=== PATIENT | female | born 1930 | race Caucasian/White ===

== ENCOUNTER 2016-03-24 18:18 | Emergency (ER) | payer MEDICARE, OTHER ==
[~2016-03-24] VITALS: Ht 157.5 cm; Wt 75.0 kg
[~2016-03-24 18:18] MED LIST: BENZ0.5T PO; DOCU100C PO; DONE5TAB7 PO; HYDR-3516 PO; HYDR10TA23 PO; LISI-515 PO; MACR100C2 PO; METO25TA3 PO; QUET1TAB10 PO; QUET1TAB7 PO; ROBA100S PO; SERT-129 PO; TRAM50TA PO
[2016-03-24 18:19] VITALS: BP 172/72; PULSE 84; RESP 18; TEMP 98.7; O2SAT 96
[2016-03-24] MEDS ORDERED: SODIUM CHLOR 0.9% 1000 ML INJ 1,000 ML IV SCH (18:26)
[2016-03-24] MEDS ORDERED: SODIUM CHLORIDE 0.9% FLUSH 5 ML FLUSH IVF PRN (18:30)
[2016-03-24] MEDS ORDERED: MORPHINE SULFATE 4 MG/ML INJ IV PUSH ONE (18:30)
--- NOTE | 2016-03-24 18:54 | PD ---
HPI Chief Complaint: Abdominal Pain Time Seen by Provider: 18:48 Travel History International Travel<30 days: No Contact w/Intl Traveler<30days: No Traveled to known affect area: No History of Present Illness HPI 85-year-old female with a history of dementia and hypertension presents to the emergency department from her assisted living facility for evaluation of abdominal pain that began this afternoon. Per EMS report the patient began complaining of abdominal plain mostly on the right upper quadrant at around noon. The staff reported to EMS that the patient's pain has persisted. Per EMS report she has not had any vomiting, diarrhea, fever, urinary symptoms. Per EMS report from the facility the patient is at her mental status baseline. The patient is a poor historian. She is complaining of abdominal pain pointing to her right upper quadrant. No other complaints. PFSH Past Medical History Arthritis: No Anxiety: Yes Cancer: No Cardiovascular Problems: No Congestive Heart Failure: No Cerebrovascular Accident: No Dementia: Yes Diabetes: No Diminished Hearing: No Endocrine: No Gastrointestinal Disorders: No Genitourinary: No Headaches: No Hypertension: Yes Immune Disorder: No Implanted Vascular Access Dvce: No Musculoskeletal: Yes (LEFT WRIST FX) Neurologic: Yes (DEMENTIA) Psychiatric: No Respiratory: No Immunizations Current: Yes ([facility], APPROX 5 WEEKS AGO) Seizures: No Thyroid Disease: No Influenza Vaccination: No ?: Not Menopausal: Yes Para: 2 Past Surgical History Joint Replacement: No Other Surgery: No Social History Alcohol Use: No Tobacco Use: No Substance Use: No Allergies-Medications (Allergen,Severity, Reaction): Coded Allergies: No Known Allergies (Unverified , 03/23/16) Reported Meds & Prescriptions Reported Meds & Active Scripts Active Tramadol (Tramadol HCl) 50 Mg Tab 50 Mg PO Q6H PRN Macrobid (Nitrofurantoin Monoh/Nitrofur Macro) 100 Mg Cap 100 Mg PO BID Reported Robafen Dm 100-10 mg/5Ml (Dextromethorphan-Guaifenesin) 1 Syp Syp 10 Ml PO QID Hydrocodone-Acetaminophen 5-325 mg Tab 1 Tab PO Q4H PRN Docusate Sodium 100 Mg Cap 100 Mg PO BID Sertraline (Sertraline HCl) 100 Mg Tab 100 Mg PO DAILY Quetiapine (Quetiapine Fumarate) 300 Mg Tab 300 Mg PO HS Quetiapine (Quetiapine Fumarate) 25 Mg Tab 25 Mg PO DAILY Metoprolol Tartrate 25 Mg Tab 25 Mg PO BID Lisinopril 20 Mg Tab 20 Mg PO BID Hydralazine (Hydralazine HCl) 10 Mg Tab 10 Mg PO BID Take with a meal Donepezil 5 Mg Tab 5 Mg PO BID Benztropine (Benztropine Mesylate) 0.5 Mg Tab 0.5 Mg PO BID Review of Systems ROS Limitations: Poor Historian (dementia) Except as stated in HPI: all other systems reviewed are Neg Physical Exam Narrative GENERAL: Well-nourished and well-developed pleasant female patient in no acute distress. SKIN: Warm and dry. HEAD: Normocephalic and atraumatic. EYES: No injection, drainage, or hyphema noted. PERRLA. EOMI. ENT: No nasal drainage noted. Oropharynx is clear. NECK: Supple and the trachea is midline. CARDIOVASCULAR: Regular rate and rhythm. RESPIRATORY: Breath sounds are equal bilaterally with no accessory muscle use, wheezing, rhonchi, or crackles. GASTROINTESTINAL: Abdomen slightly distended with generalized tenderness to palpation worse in the right upper quadrant. Abdomen is soft. MUSCULOSKELETAL: No obvious deformities, swelling, cyanosis, or ecchymosis is present throughout the upper and lower extremities. Patient has full range of motion without any signs of neurovascular compromise. NEUROLOGICAL: Awake and alert. Normal speech and gait. Cranial nerves are grossly intact. Data Data Last Documented VS Vital Signs Date Time Temp Pulse Resp B/P Pulse Ox O2 Delivery O2 Flow Rate FiO2 03/24/16 19:13 18 03/24/16 19:10 90 171/78 97 Room Air 03/24/16 18:19 98.7 Orders Complete Blood Count With Diff (03/24/16 18:26) Comprehensive Metabolic Panel (03/24/16 18:26) Lipase (03/24/16 18:26) Prothrombin Time / Inr (Pt) (03/24/16 18:26) Act Partial Throm Time (Ptt) (03/24/16 18:26) Urinalysis - C+S If Indicated (03/24/16 18:26) Ct Abd/Pel W Iv Contrast(Rout) (03/24/16 18:26) Iv Access Insert/Monitor (03/24/16 18:26) Ecg Monitoring (03/24/16 18:26) Oximetry (03/24/16 18:26) Morphine Inj (Morphine Inj) (03/24/16 18:30) Sodium Chlor 0.9% 1000 Ml Inj (Ns 1000 M (03/24/16 18:26) Sodium Chloride 0.9% Flush (Ns Flush) (03/24/16 18:30) Electrocardiogram (03/24/16 18:26) Us Abdomen Gallbladder (03/24/16 ) Troponin I (03/24/16 18:26) Chest, Single Ap (03/24/16 18:32) Urine Culture (03/24/16 19:10) Cephalexin (Keflex) (03/24/16 23:00) Iohexol 350 Inj (Omnipaque 350 Inj) (03/24/16 23:00) Labs Laboratory Tests Test 03/24/16 03/24/16 03/24/16 18:26 18:50 19:10 White Blood Count 7.6 TH/MM3 Red Blood Count 3.47 MIL/MM3 Hemoglobin 10.3 GM/DL Hematocrit 31.2 % Mean Corpuscular Volume 89.9 FL Mean Corpuscular Hemoglobin 29.7 PG Mean Corpuscular Hemoglobin 33.0 % Concent Red Cell Distribution Width 13.9 % Platelet Count 225 TH/MM3 Mean Platelet Volume 9.5 FL Neutrophils (%) (Auto) 65.4 % Lymphocytes (%) (Auto) 21.3 % Monocytes (%) (Auto) 8.9 % Eosinophils (%) (Auto) 3.7 % Basophils (%) (Auto) 0.7 % Neutrophils # (Auto) 5.0 TH/MM3 Lymphocytes # (Auto) 1.6 TH/MM3 Monocytes # (Auto) 0.7 TH/MM3 Eosinophils # (Auto) 0.3 TH/MM3 Basophils # (Auto) 0.1 TH/MM3 CBC Comment DIFF FINAL Differential Comment Prothrombin Time 10.9 SEC Prothromb Time International 1.0 RATIO Ratio Activated Partial 27.6 SEC Thromboplast Time Sodium Level 139 MEQ/L Potassium Level 3.9 MEQ/L Chloride Level 104 MEQ/L Carbon Dioxide Level 27.7 MEQ/L Anion Gap 7 MEQ/L Blood Urea Nitrogen 20 MG/DL Creatinine 1.04 MG/DL Estimat Glomerular Filtration 50 ML/MIN Rate Random Glucose 108 MG/DL Calcium Level 8.6 MG/DL Total Bilirubin 0.2 MG/DL Aspartate Amino Transf 20 U/L (AST/SGOT) Alanine Aminotransferase 23 U/L (ALT/SGPT) Alkaline Phosphatase 110 U/L Troponin I LESS THAN 0.02 NG/ML Total Protein 8.0 GM/DL Albumin 3.7 GM/DL Lipase 321 U/L Urine Color YELLOW Urine Turbidity HAZY Urine pH 5.5 Urine Specific [place] 1.019 Urine Protein NEG mg/dL Urine Glucose (UA) NEG mg/dL Urine Ketones NEG mg/dL Urine Occult Blood NEG Urine Nitrite NEG Urine Bilirubin NEG Urine Urobilinogen LESS THAN 2.0 MG/DL Urine Leukocyte Esterase MOD Urine RBC 3 /hpf Urine WBC 7 /hpf Urine Squamous Epithelial <1 /hpf Cells Urine Bacteria MANY /hpf Urine Mucus FEW /lpf Microscopic Urinalysis Comment CULTURE INDICATED MDM Medical Decision Making Medical Screen Exam Complete: Yes Emergency Medical Condition: Yes Differential Diagnosis Cholecystitis versus colitis versus constipation versus UTI versus diverticulitis Narrative Course 85-year-old female is brought to the emergency department for [facility] for evaluation of right upper quadrant abdominal pain for 1 day. Patient is afebrile, vital signs are stable. The patient did recently fracture left wrist, was seen in our emergency department about a week ago for this injury. She has been given opioid pain medication for this pain, unsure of her last bowel movement. She does have generalized tenderness to palpation of her abdomen worse in the right upper quadrant. IV access is obtained, labs have been drawn and sent. Ultrasound and CT imaging has been ordered and is pending. Chest x-ray shows bibasilar atelectasis but otherwise is unremarkable. CBC shows mild anemia, otherwise unremarkable. CMP shows mild renal insufficiency with an elevated creatinine of 1.04, BUN 20, GFR 50. This is only a slight increase from baseline. Troponin is less than 0.02. Coags are unremarkable. Urinalysis shows moderate leukocyte esterase, 7 white blood cells, many bacteria and few mucus. Gallbladder ultrasound is negative for any acute abnormality. Patient reassessed and reports improvement of symptoms, states that she is no longer having abdominal pain. Vital signs are stable. Patient is given Keflex 500 mg orally for her urinary tract infection. If the patient's CT of her abdomen and pelvis is unremarkable she can be discharged back to her [facility] Dr. Villalobos will follow-up on CT results. Diagnosis Primary Impression: Urinary tract infection Qualified Code: N39.0 - Urinary tract infection without hematuria, site unspecified Additional Impressions: Abdominal pain Qualified Code: R10.11 - Right upper quadrant abdominal pain Cholecystitis Bree Wilson Mar 24, 2016 18:54
--- NOTE | 2016-03-24 18:56 | PD ---
Physical Exam Date Seen by Provider: Mar 24, 2016 Narrative I, Dr. Roy, have reviewed the advance practice practitioner's documentation and am in agreement, met with the patient face to face, made the diagnosis, and the medical decision making was done by me. *My assessment and Findings: The patient's abdomen is soft but she is tender in the right upper quadrant Data Data Last Documented VS Vital Signs Date Time Temp Pulse Resp B/P Pulse Ox O2 Delivery O2 Flow Rate FiO2 03/24/16 18:19 98.7 84 18 172/72 96 Orders Complete Blood Count With Diff (03/24/16 18:26) Comprehensive Metabolic Panel (03/24/16 18:26) Lipase (03/24/16 18:26) Prothrombin Time / Inr (Pt) (03/24/16 18:26) Act Partial Throm Time (Ptt) (03/24/16 18:26) Urinalysis - C+S If Indicated (03/24/16 18:26) Ct Abd/Pel W Iv Contrast(Rout) (03/24/16 18:26) Iv Access Insert/Monitor (03/24/16 18:26) Ecg Monitoring (03/24/16 18:26) Oximetry (03/24/16 18:26) Morphine Inj (Morphine Inj) (03/24/16 18:30) Sodium Chlor 0.9% 1000 Ml Inj (Ns 1000 M (03/24/16 18:26) Sodium Chloride 0.9% Flush (Ns Flush) (03/24/16 18:30) Electrocardiogram (03/24/16 18:26) Us Abdomen Gallbladder (03/24/16 ) Troponin I (03/24/16 18:26) Chest, Single Ap (03/24/16 18:32) MDM Supervised Visit with CLOVER: Yes Kelsey Roy MD Mar 24, 2016 18:56
--- NOTE | 2016-03-24 19:01 | RADRPT ---
EXAM DATE/TIME: 03/24/2016 18:44 [facility] COMPARISON: No previous studies available for comparison. INDICATIONS : Rib pain. MEDICAL HISTORY : Hypertension. Dementia. SURGICAL HISTORY : ORIF left wrist. ENCOUNTER: Initial ACUITY: 1 day PAIN SCORE: 0/10 LOCATION: Abdomen FINDINGS: There is mild bibasilar atelectasis. No pleural effusion or pneumothorax seen. Heart size upper limit s of normal. No perceptible fracture. CONCLUSION: Mild bibasilar atelectasis. Valeriano Jones MD on March 24, 2016 at 18:59 Board Certified Radiologist. This report was verified electronically.
[2016-03-24 19:08] LABS: BASOPHIL # 0.1 TH/MM3 (0-0.2); BASOPHIL % 0.7 % (0.0-2.0); EOSINOPHIL # 0.3 TH/MM3 (0-0.4); EOSINOPHIL % 3.7 % (0.0-4.0); HEMATOCRIT 31.2 % (35.0-46.0); HEMO FLAGS DIFF FINAL; LYMPH % 21.3 % (9.0-44.0); LYMPHOCYTE # 1.6 TH/MM3 (1.0-4.8); MEAN CELL VOLUME 89.9 FL (80.0-100.0); MEAN CORPUSCULAR HEMOGLOBIN 29.7 PG (27.0-34.0); MONO % 8.9 % (0.0-8.0); NEUT % 65.4 % (16.0-70.0); PLATELET COUNT 225 TH/MM3 (150-450); RED BLOOD COUNT 3.47 MIL/MM3 (4.00-5.30); RED CELL DISTRIBUTION WIDTH 13.9 % (11.6-17.2); WHITE BLOOD COUNT 7.6 TH/MM3 (4.0-11.0)
[2016-03-24 19:10] VITALS: BP 171/78; PULSE 90; RESP 18; O2SAT 97
[2016-03-24 19:15] LABS: APTT (PATIENT) 27.6 SEC (24.3-30.1); PROTHROMBIN TIME - PATIENT 10.9 SEC (9.8-11.6)
[2016-03-24 19:41] LABS: BACTERIA, URINE MANY /hpf; BLOOD, URINE NEG (NEG); COMMENT (UR) CULTURE INDICATED; CULTURE IF INDICATED CULTURE INDICATED; GLUCOSE,URINE NEG (NEG); KETONE, URINE NEG (NEG); MUCUS URINE FEW /lpf (OCC); NITRITE,URINE NEG (NEG); PH, URINE 5.5 (5.0-8.5); SQUAMOUS EPITHELIAL CELL URINE <1 /hpf (0-5); URINE COLOR YELLOW (YELLW/STRAW)
[2016-03-24 19:51] LABS: ALKALINE PHOSPHATASE 110 U/L (45-117); ALT (GPT) 23 U/L (10-53); ANION GAP 7 MEQ/L (5-15); AST (GOT) 20 U/L (15-37); BICARBONATE 27.7 MEQ/L (21.0-32.0); BLOOD UREA NITROGEN 20 MG/DL (7-18); CHLORIDE 104 MEQ/L (98-107); GLOMERULAR FILTRATION RATE 50 ML/MIN (>89); POTASSIUM 3.9 MEQ/L (3.5-5.1); SODIUM (NA) 139 MEQ/L (136-145); TOTAL BILIRUBIN ADULT 0.2 MG/DL (0.2-1.0)
--- NOTE | 2016-03-24 20:55 | RADRPT ---
EXAM DATE/TIME: 03/24/2016 19:39 [facility] COMPARISON: CT ABDOMEN & PELVIS W CONTRAST, February 04, 2016, 12:05. INDICATIONS : Right upper quadrant pain. MEDICAL HISTORY : Hypertension. Dementia. . Anxiety. Left wrist fracture. SURGICAL HISTORY : None. ENCOUNTER: Initial ACUITY: 1 day PAIN SCORE: 7/10 LOCATION: Right upper quadrant MEASUREMENTS: LIVER: 11.9 cm length COMMON DUCT: 3 mm RIGHT KIDNEY: 9.2 x 5.1 x 4.5 cm FINDINGS: LIVER: Normal echotexture without focal lesion or ductal dilatation. COMMON DUCT: No intraluminal mass or stone visualized. GALLBLADDER: Contains no stones, demonstrates no wall thickening or pericholecystic fluid. PANCREAS: The visualized portions are within normal limits. RIGHT KIDNEY: No evidence of hydronephrosis, stone, or mass. CONCLUSION: No acute abnormality demonstrated. Valeriano Jones MD on March 24, 2016 at 20:53 Board Certified Radiologist. This report was verified electronically.
[2016-03-24 23:00] VITALS: BP 177/78; PULSE 83; RESP 18; O2SAT 96
[2016-03-24] MEDS ORDERED: IOHEXOL 350 MG/ML 10 ML VIAL (for RAD DIAG) IV ONE (23:00)
[2016-03-24] MEDS ORDERED: CEPHALEXIN MONOHYDRATE 500 MG CAP PO ONE (23:00)
[2016-03-24] MEDS ORDERED: CEPH-460 PO (23:03)
--- NOTE | 2016-03-24 23:16 | RADRPT ---
EXAM DATE/TIME: 03/24/2016 22:42 [facility] COMPARISON: CT ABDOMEN & PELVIS W CONTRAST, February 04, 2016, 12:05. INDICATIONS : Diffuse abdominal pain. IV CONTRAST: 78 cc Omnipaque 350 (iohexol) IV ORAL CONTRAST: No oral contrast ingested. RADIATION DOSE: 10.05 CTDIvol (mGy) MEDICAL HISTORY : Dementia. Hypertension. SURGICAL HISTORY : None. ENCOUNTER: Initial ACUITY: 1 day PAIN SCALE: 4/10 LOCATION: Bilateral abdomen TECHNIQUE: Volumetric scanning of the abdomen and pelvis was performed. Using automated exposure control and ad justment of the mA and/or kV according to patient size, radiation dose was kept as low as reasonably achievable to obtain optimal diagnostic quality images. FINDINGS: LOWER LUNGS: There small areas consolidation right greater than left in both lung bases similar to previous CT sca n in January, likely atelectasis LIVER: Homogeneous density without lesion. There is no dilation of the biliary tree. No calcified gallston es. SPLEEN: Normal size without lesion. PANCREAS: Within normal limits. KIDNEYS: Normal in size and shape. There is no mass, stone or hydronephrosis. ADRENAL GLANDS: Within normal limits. VASCULAR: There is no aortic aneurysm. BOWEL/MESENTERY: The stomach, small bowel, and colon demonstrate no acute abnormality. There is no free intraperitone al air or fluid. Small duodenal diverticulum ABDOMINAL WALL: Within normal limits. RETROPERITONEUM: There is no lymphadenopathy. BLADDER: No wall thickening or mass with excellent distention. REPRODUCTIVE: Within normal limits. INGUINAL: There is no lymphadenopathy or hernia. MUSCULOSKELETAL: Within normal limits for patient age. CONCLUSION: The appendix is normal. The bladder is significantly distended without evidence of stone or obstructi on. No evidence of bowel wall thickening or mass. David Baker MD on March 24, 2016 at 23:12 Board Certified Radiologist. This report was verified electronically.
--- NOTE | 2016-03-25 01:09 | PD ---
Data Data Last Documented VS Vital Signs Date Time Temp Pulse Resp B/P Pulse Ox O2 Delivery O2 Flow Rate FiO2 03/24/16 23:00 83 18 177/78 96 Room Air 03/24/16 18:19 98.7 Orders Complete Blood Count With Diff (03/24/16 18:26) Comprehensive Metabolic Panel (03/24/16 18:26) Lipase (03/24/16 18:26) Prothrombin Time / Inr (Pt) (03/24/16 18:26) Act Partial Throm Time (Ptt) (03/24/16 18:26) Urinalysis - C+S If Indicated (03/24/16 18:26) Ct Abd/Pel W Iv Contrast(Rout) (03/24/16 18:26) Iv Access Insert/Monitor (03/24/16 18:26) Ecg Monitoring (03/24/16 18:26) Oximetry (03/24/16 18:26) Morphine Inj (Morphine Inj) (03/24/16 18:30) Sodium Chlor 0.9% 1000 Ml Inj (Ns 1000 M (03/24/16 18:26) Sodium Chloride 0.9% Flush (Ns Flush) (03/24/16 18:30) Electrocardiogram (03/24/16 18:26) Us Abdomen Gallbladder (03/24/16 ) Troponin I (03/24/16 18:26) Chest, Single Ap (03/24/16 18:32) Urine Culture (03/24/16 19:10) Cephalexin (Keflex) (03/24/16 23:00) Iohexol 350 Inj (Omnipaque 350 Inj) (03/24/16 23:00) Urinary Catheter Insert/Apply (03/24/16 23:44) Labs Laboratory Tests Test 03/24/16 03/24/16 03/24/16 18:26 18:50 19:10 White Blood Count 7.6 TH/MM3 Red Blood Count 3.47 MIL/MM3 Hemoglobin 10.3 GM/DL Hematocrit 31.2 % Mean Corpuscular Volume 89.9 FL Mean Corpuscular Hemoglobin 29.7 PG Mean Corpuscular Hemoglobin 33.0 % Concent Red Cell Distribution Width 13.9 % Platelet Count 225 TH/MM3 Mean Platelet Volume 9.5 FL Neutrophils (%) (Auto) 65.4 % Lymphocytes (%) (Auto) 21.3 % Monocytes (%) (Auto) 8.9 % Eosinophils (%) (Auto) 3.7 % Basophils (%) (Auto) 0.7 % Neutrophils # (Auto) 5.0 TH/MM3 Lymphocytes # (Auto) 1.6 TH/MM3 Monocytes # (Auto) 0.7 TH/MM3 Eosinophils # (Auto) 0.3 TH/MM3 Basophils # (Auto) 0.1 TH/MM3 CBC Comment DIFF FINAL Differential Comment Prothrombin Time 10.9 SEC Prothromb Time International 1.0 RATIO Ratio Activated Partial 27.6 SEC Thromboplast Time Sodium Level 139 MEQ/L Potassium Level 3.9 MEQ/L Chloride Level 104 MEQ/L Carbon Dioxide Level 27.7 MEQ/L Anion Gap 7 MEQ/L Blood Urea Nitrogen 20 MG/DL Creatinine 1.04 MG/DL Estimat Glomerular Filtration 50 ML/MIN Rate Random Glucose 108 MG/DL Calcium Level 8.6 MG/DL Total Bilirubin 0.2 MG/DL Aspartate Amino Transf 20 U/L (AST/SGOT) Alanine Aminotransferase 23 U/L (ALT/SGPT) Alkaline Phosphatase 110 U/L Troponin I LESS THAN 0.02 NG/ML Total Protein 8.0 GM/DL Albumin 3.7 GM/DL Lipase 321 U/L Urine Color YELLOW Urine Turbidity HAZY Urine pH 5.5 Urine Specific [place] 1.019 Urine Protein NEG mg/dL Urine Glucose (UA) NEG mg/dL Urine Ketones NEG mg/dL Urine Occult Blood NEG Urine Nitrite NEG Urine Bilirubin NEG Urine Urobilinogen LESS THAN 2.0 MG/DL Urine Leukocyte Esterase MOD Urine RBC 3 /hpf Urine WBC 7 /hpf Urine Squamous Epithelial <1 /hpf Cells Urine Bacteria MANY /hpf Urine Mucus FEW /lpf Microscopic Urinalysis Comment CULTURE INDICATED MDM Medical Record Reviewed: Yes Supervised Visit with CLOVER: Yes Narrative Course CBC & BMP Diagram 03/24/16 18:26 03/24/16 18:50 UA uti present lfts nl lipase nl Last 24 hours Impressions Chest X-Ray 03/24/161831 Signed Impressions: Service Date/Time: Thursday, March 24, 2016 18:44 - CONCLUSION: Mild bibasilar atelectasis. Valeriano Jones MD Abdomen/Pelvis CT 03/24/161825 Signed Impressions: Service Date/Time: Thursday, March 24, 2016 22:42 - CONCLUSION: The appendix is normal. The bladder is significantly distended without evidence of stone or obstruction. No evidence of bowel wall thickening or mass. David Baker MD Gall Bladder Ultrasound 03/24/16 0000 Signed Impressions: Service Date/Time: Saturday, March 24, 2016 19:39 - CONCLUSION: No acute abnormality demonstrated. Valeriano Jones MD The patient had urinary retention. Larson catheter in 1500 cc of clear urine was collected. The patient has remained at her baseline mental status throughout the ER stay, pleasantly confused. Tenderness about the abdomen improved significantly after urine was drained. There appears to be a urinary tract infection. The patient will go home on Keflex to [facility]. Diagnosis Primary Impression: Urinary tract infection Qualified Code: N39.0 - Urinary tract infection without hematuria, site unspecified Additional Impression: Acute urinary retention Referrals: Shawn Ferreira MD 2 days Primary Care Physician 1 day Additional Instruction: You have a choice when it comes to health care, and we are glad that you chose [facility]. Hopefully, we have met your expectations on today's visit. You are welcome to return to [facility] at any time, as we are committed to meeting the health care needs of our community. Med/Other Pt SpecificInfo: Prescription(s) given Scripts Cephalexin (Keflex)500 Mg [id number] Mg PO Q12H 7 Days Ref 0 Prov:Kelsey Roy MD 03/24/16 Disposition: 01 DISCHARGE HOME Condition: Stable Pb Villalobos MD Mar 25, 2016 01:09
[2016-03-25 05:59] VITALS: BP_SYST 173; BP_SYST 183; BP_DIAS 66; BP_DIAS 73; PULSE 88; PULSE 93; RESP 12; RESP 19; O2SAT 95
[2016-03-25 08:00] VITALS: BP 185/73; PULSE 80; RESP 15; O2SAT 95
--- NOTE | 2016-03-25 13:28 | EKG ---
Date Performed: 03/24/2016 Time Performed: 19:29:27 PTAGE: 85 years EKG: Sinus rhythm POSSIBLE LEFT ATRIAL ENLARGEMENT Since previous tracing, no significant change noted BORDERLINE ECG PREVIOUS TRACING : 06/23/2014 11.18 DOCTOR: Christelle Alvarado Interpretating Date/Time 03/25/2016 13:26:56
== END 2016-03-25 08:40 | disposition home or self-care (01) ==
LOC: NEPC 18:18
DX: N39.0 Urinary tract infection, site not specified (principal); B96.1 Klebsiella pneumoniae [K. pneumoniae] as the cause of diseases classified elsewhere; R10.11 Right upper quadrant pain; R07.81 Pleurodynia; R33.9 Retention of urine, unspecified; I10 Essential (primary) hypertension; K81.9 Cholecystitis, unspecified
CPT/HCPCS: 51702; 71010; 74177; 76705; 80053; 81001; 83690; 84484; 85025; 85610; 85730; 87077; 87086; 87186; 93005; 96374; 99285; J2270; J7030; Q9967

== ENCOUNTER 2016-03-25 14:42 | Emergency (ER) | payer MEDICARE, OTHER ==
[~2016-03-25] VITALS: Ht 162.6 cm; Wt 70.0 kg
[~2016-03-25 14:42] MED LIST changes: +CEPH-460 PO
[2016-03-25 14:48] VITALS: BP 153/68; PULSE 96; RESP 16; TEMP 99; O2SAT 96
--- NOTE | 2016-03-25 15:11 | PD ---
HPI . Pulling at her Larson Chief Complaint: Complaint Time Seen by Provider: 15:01 Travel History International Travel<30 days: No Contact w/Intl Traveler<30days: No Traveled to known affect area: No History of Present Illness HPI This patient is [place]-speaking and probably has some dementia. She was seen here yesterday and had an extensive evaluation for abdominal pain. She was found to have urinary retention and a UTI. She was discharged back to an assisted living facility with a Larson and with Keflex. The assisted living facility has sent her back to us as the patient is pulling on her Larson. PFSH Past Medical History Arthritis: No Anxiety: Yes Cancer: No Cardiovascular Problems: No Congestive Heart Failure: No Cerebrovascular Accident: No Dementia: Yes Diabetes: No Diminished Hearing: No Endocrine: No Gastrointestinal Disorders: No Genitourinary: No Headaches: No Hypertension: Yes Immune Disorder: No Implanted Vascular Access Dvce: No Musculoskeletal: Yes (LEFT WRIST FX) Neurologic: Yes (DEMENTIA) Psychiatric: No Respiratory: No Immunizations Current: Yes ([facility], APPROX 5 WEEKS AGO) Seizures: No Thyroid Disease: No ?: Not Menopausal: Yes Para: 2 Past Surgical History Joint Replacement: No Other Surgery: No Social History Alcohol Use: No Tobacco Use: No Substance Use: No Allergies-Medications (Allergen,Severity, Reaction): Coded Allergies: No Known Allergies (Unverified , 03/23/16) Reported Meds & Prescriptions Reported Meds & Active Scripts Active Keflex (Cephalexin) 500 Mg Cap 500 Mg PO Q12H 7 Days Tramadol (Tramadol HCl) 50 Mg Tab 50 Mg PO Q6H PRN Macrobid (Nitrofurantoin Monoh/Nitrofur Macro) 100 Mg Cap 100 Mg PO BID Reported Robafen Dm 100-10 mg/5Ml (Dextromethorphan-Guaifenesin) 1 Syp Syp 10 Ml PO QID Hydrocodone-Acetaminophen 5-325 mg Tab 1 Tab PO Q4H PRN Docusate Sodium 100 Mg Cap 100 Mg PO BID Sertraline (Sertraline HCl) 100 Mg Tab 100 Mg PO DAILY Quetiapine (Quetiapine Fumarate) 300 Mg Tab 300 Mg PO HS Quetiapine (Quetiapine Fumarate) 25 Mg Tab 25 Mg PO DAILY Metoprolol Tartrate 25 Mg Tab 25 Mg PO BID Lisinopril 20 Mg Tab 20 Mg PO BID Hydralazine (Hydralazine HCl) 10 Mg Tab 10 Mg PO BID Take with a meal Donepezil 5 Mg Tab 5 Mg PO BID Benztropine (Benztropine Mesylate) 0.5 Mg Tab 0.5 Mg PO BID Review of Systems ROS Limitations: Language Barrier Physical Exam Narrative GENERAL: Patient is lying on the stretcher looking comfortable and in no distress SKIN: Warm and dry. HEAD: Atraumatic. Normocephalic. EYES: Pupils equal and round. ENT: No nasal bleeding or discharge. Mucous membranes pink and moist. NECK: Trachea midline. CARDIOVASCULAR: Regular rate and rhythm. RESPIRATORY: No accessory muscle use. GASTROINTESTINAL: Abdomen soft, non-tender, nondistended. MUSCULOSKELETAL: No obvious deformities. No edema. NEUROLOGICAL: Awake and alert. No obvious cranial nerve deficits. Motor grossly within normal limits. Normal speech. PSYCHIATRIC: Unable to assess. Data Data Last Documented VS Vital Signs Date Time Temp Pulse Resp B/P Pulse Ox O2 Delivery O2 Flow Rate FiO2 03/25/16 17:33 68 17 167/73 97 Room Air 03/25/16 14:48 99.0 Orders Urinary Catheter - Remove (03/25/16 15:06) ^ Encourage Fluids (03/25/16 15:06) MDM Medical Decision Making Medical Screen Exam Complete: Yes Emergency Medical Condition: Yes Medical Record Reviewed: Yes Differential Diagnosis Differential diagnosis includes dementia, sepsis, UTI Narrative Course This patient was sent to us because she is pulling at her Larson. She lives in assisted living but not correction. We will remove her Larson, give her oral fluids and see if she will urinate on her own. 5 PM The patient has been given water but has not yet urinated. We checked a bladder scan and she's got less than 100 cc of urine in her bladder. She will be given more oral fluids. 5:45 PM The patient has spontaneously urinated. We will now discharge her back to the assisted living facility. Diagnosis Primary Impression: Urinary tract infection Disposition: 01 DISCHARGE HOME Condition: Stable Kelsey Roy MD Mar 25, 2016 15:11
[2016-03-25 17:33] VITALS: BP 167/73; PULSE 68; RESP 17; O2SAT 97
== END 2016-03-25 20:46 | disposition home or self-care (01) ==
LOC: NEPE 14:42
DX: N39.0 Urinary tract infection, site not specified (principal); I10 Essential (primary) hypertension; F03.90 Unspecified dementia, unspecified severity, without behavioral disturbance, psychotic disturbance, mood disturbance, and anxiety; F41.9 Anxiety disorder, unspecified
CPT/HCPCS: 99284

== ENCOUNTER 2016-04-01 09:32 | Emergency (ER) | payer MEDICARE, OTHER ==
[2016-04-01 09:40] VITALS: BP 150/66; PULSE 62; RESP 16; TEMP 98.2; O2SAT 98
[2016-04-01] MEDS ORDERED: SODIUM CHLORIDE 0.9% FLUSH 5 ML FLUSH IVF PRN (09:45)
[2016-04-01 09:55] VITALS: O2SAT 97
[2016-04-01] MEDS ORDERED: ACET300T2 PO (10:00)
[2016-04-01 10:11] LABS: AUTOMATED NEUTROPHIL # 6.7 TH/MM3 (1.8-7.7); BASOPHIL # 0.1 TH/MM3 (0-0.2); BASOPHIL % 0.7 % (0.0-2.0); EOSINOPHIL # 0.2 TH/MM3 (0-0.4); EOSINOPHIL % 2.5 % (0.0-4.0); HEMATOCRIT 29.4 % (35.0-46.0); HEMO FLAGS DIFF FINAL; LYMPH % 18.1 % (9.0-44.0); LYMPHOCYTE # 1.7 TH/MM3 (1.0-4.8); MEAN CELL VOLUME 89.4 FL (80.0-100.0); MEAN CORPUSCULAR HEMOGLOBIN 30.3 PG (27.0-34.0); MEAN CORPUSCULAR HGB CONC 33.9 % (32.0-36.0); MONO % 8.1 % (0.0-8.0); NEUT % 70.6 % (16.0-70.0); PLATELET COUNT 210 TH/MM3 (150-450); RED BLOOD COUNT 3.28 MIL/MM3 (4.00-5.30); WHITE BLOOD COUNT 9.5 TH/MM3 (4.0-11.0)
[2016-04-01 10:19] LABS: BLOOD, URINE SMALL (NEG); GLUCOSE,URINE NEG (NEG); KETONE, URINE NEG (NEG); MUCUS URINE FEW /lpf (OCC); NITRITE,URINE NEG (NEG); TRANSITIONAL EPI CELLS, URINE <1 /hpf; URINE COLOR YELLOW (YELLW/STRAW)
[2016-04-01 10:20] LABS: COMMENT (UR) CATH-CULT NOT IND; CULTURE IF INDICATED CATH CULTURE NOT IND
--- NOTE | 2016-04-01 10:22 | PD ---
HPI Chief Complaint: Abdominal Pain Time Seen by Provider: 09:39 Travel History International Travel<30 days: No Contact w/Intl Traveler<30days: No Traveled to known affect area: No History of Present Illness HPI Patient is a 85-year-old Tuvaluan-speaking female with history of dementia here with reported complaint of abdominal pain. Attempted to use telephone interpreter deaf, but patient only stating that she is here for "being cold". 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 Per EMS patient apparently complained staff at her [facility] this morning that she had abdominal pain. Patient denies any pain now. Per chart review patient has been here multiple times recently for urinary tract infection , urinary retention and had Larson catheter placed and removed. No documented fevers per EMS. Patient is apparently at mental status baseline per EMS. PFSH Past Medical History Arthritis: No Anxiety: Yes Cancer: No Cardiovascular Problems: No Congestive Heart Failure: No Cerebrovascular Accident: No Dementia: Yes Diabetes: No Diminished Hearing: No Endocrine: No Gastrointestinal Disorders: No Genitourinary: No Headaches: No Hypertension: Yes Immune Disorder: No Implanted Vascular Access Dvce: No Musculoskeletal: Yes (LEFT WRIST FX) Neurologic: Yes (DEMENTIA) Psychiatric: No Respiratory: No Immunizations Current: Yes ([facility], APPROX 5 WEEKS AGO) Seizures: No Thyroid Disease: No Menopausal: Yes Para: 2 Past Surgical History Surgical History: Unable to Obtain Joint Replacement: No Other Surgery: No Social History Alcohol Use: No Tobacco Use: No Substance Use: No Allergies-Medications (Allergen,Severity, Reaction): Coded Allergies: No Known Allergies (Unverified , 04/01/16) Reported Meds & Prescriptions Reported Meds & Active Scripts Active Keflex (Cephalexin) 500 Mg Cap 500 Mg PO Q12H 7 Days Tramadol (Tramadol HCl) 50 Mg Tab 50 Mg PO Q6H PRN Reported Acetaminophen-Codeine 300-30 mg Tab 1 Tab PO Q4H PRN Docusate Sodium 100 Mg Cap 100 Mg PO BID Sertraline (Sertraline HCl) 100 Mg Tab 100 Mg PO DAILY Quetiapine (Quetiapine Fumarate) 300 Mg Tab 300 Mg PO HS Quetiapine (Quetiapine Fumarate) 25 Mg Tab 25 Mg PO DAILY Metoprolol Tartrate 25 Mg Tab 25 Mg PO BID Lisinopril 20 Mg Tab 20 Mg PO BID Hydralazine (Hydralazine HCl) 10 Mg Tab 10 Mg PO BID Take with a meal Donepezil 5 Mg Tab 5 Mg PO BID Benztropine (Benztropine Mesylate) 0.5 Mg Tab 0.5 Mg PO BID Review of Systems ROS Limitations: Altered Mental Status, Language Barrier, Poor Historian Physical Exam Exam Limitations: Altered Mental Status, Poor Historian Narrative GENERAL: Elderly female lying in bed with eyes closed in no acute distress SKIN: Warm and dry. HEAD: Normocephalic. EYES: Pupils equal and round. No scleral icterus. No injection or drainage. ENT: No nasal bleeding or discharge. Mucous membranes pink and moist. NECK: Supple CARDIOVASCULAR: Regular rate and rhythm. Holosystolic murmur RESPIRATORY: No accessory muscle use. GASTROINTESTINAL: Abdomen soft, non-tender, nondistended. Absolutely no reproducible tenderness to palpation, no palpable bladder fullness. No CVA tenderness. MUSCULOSKELETAL: No edema. NEUROLOGICAL: Lying in bed with eyes closed. Moves all extremities spontaneously. Alert to self, but not place or time. Mumbles about being cold , but denies any other complaints PSYCHIATRIC: Deferred given mental status Data Data Last Documented VS Vital Signs Date Time Temp Pulse Resp B/P Pulse Ox O2 Delivery O2 Flow Rate FiO2 04/01/16 09:55 97 04/01/16 09:40 98.2 62 16 150/66 Orders Complete Blood Count With Diff (04/01/16 09:39) Comprehensive Metabolic Panel (04/01/16 09:39) Lipase (04/01/16 09:39) Urinalysis - C+S If Indicated (04/01/16 09:39) Iv Access Insert/Monitor (04/01/16 09:39) Ecg Monitoring (04/01/16 09:39) Oximetry (04/01/16 09:39) Sodium Chloride 0.9% Flush (Ns Flush) (04/01/16 09:45) Cath For Specimen (04/01/16 09:39) Labs Laboratory Tests Test 04/01/16 04/01/16 09:50 10:01 Urine Color YELLOW Urine Turbidity CLEAR Urine pH 6.0 Urine Specific [place] 1.014 Urine Protein NEG mg/dL Urine Glucose (UA) NEG mg/dL Urine Ketones NEG mg/dL Urine Occult Blood SMALL Urine Nitrite NEG Urine Bilirubin NEG Urine Urobilinogen LESS THAN 2.0 MG/DL Urine Leukocyte Esterase NEG Urine RBC 4 /hpf Urine WBC LESS THAN 1 /hpf Urine Transitional Epithelial <1 /hpf Cells Urine Mucus FEW /lpf Microscopic Urinalysis Comment CATH-CULT NOT IND White Blood Count 9.5 TH/MM3 Red Blood Count 3.28 MIL/MM3 Hemoglobin 10.0 GM/DL Hematocrit 29.4 % Mean Corpuscular Volume 89.4 FL Mean Corpuscular Hemoglobin 30.3 PG Mean Corpuscular Hemoglobin 33.9 % Concent Red Cell Distribution Width 14.0 % Platelet Count 210 TH/MM3 Mean Platelet Volume 9.4 FL Neutrophils (%) (Auto) 70.6 % Lymphocytes (%) (Auto) 18.1 % Monocytes (%) (Auto) 8.1 % Eosinophils (%) (Auto) 2.5 % Basophils (%) (Auto) 0.7 % Neutrophils # (Auto) 6.7 TH/MM3 Lymphocytes # (Auto) 1.7 TH/MM3 Monocytes # (Auto) 0.8 TH/MM3 Eosinophils # (Auto) 0.2 TH/MM3 Basophils # (Auto) 0.1 TH/MM3 CBC Comment DIFF FINAL Differential Comment Sodium Level 139 MEQ/L Potassium Level 4.4 MEQ/L Chloride Level 106 MEQ/L Carbon Dioxide Level 25.3 MEQ/L Anion Gap 8 MEQ/L Blood Urea Nitrogen 15 MG/DL Creatinine 0.77 MG/DL Estimat Glomerular Filtration 71 ML/MIN Rate Random Glucose 101 MG/DL Calcium Level 8.7 MG/DL Total Bilirubin 0.4 MG/DL Aspartate Amino Transf 25 U/L (AST/SGOT) Alanine Aminotransferase 18 U/L (ALT/SGPT) Alkaline Phosphatase 123 U/L Total Protein 7.6 GM/DL Albumin 3.4 GM/DL Lipase 165 U/L [facility] Medical Decision Making Medical Screen Exam Complete: Yes Emergency Medical Condition: Yes Medical Record Reviewed: Yes Differential Diagnosis 85-year-old female with history of dementia here with reported complaints of abdominal pain, denying pain currently. History is no doubt limited due to her dementia and confounded by Tuvaluan-speaking. She does not have any reproducible tenderness palpation on abdominal examination and denies pain at this time however given barriers with history, will obtain screening labs to evaluate for persistent UTI, catheter for urinary retention, pancreatitis, hepatobiliary pathology. Given her benign exam unlikely to be peritoneal pathology, bowel obstruction. Narrative Course Patient placed on monitor, IV established and blood obtained. CBC, CMP, lipase , urinalysis obtained and notable for scant blood in the urine likely from catheterized specimen. Patient's abdomen was reexamined with again without any reproducible pain. She has been imaged just for the last 1.[address] scan and ultrasound and I do not think this warrants repeating. Diagnosis Primary Impression: Abdominal pain, unspecified site Referrals: Primary Care Physician as needed Additional Instructions: Return to the ER for the warning signs discussed. Med/Other Pt SpecificInfo: No Change to Meds Disposition: 01 DISCHARGE HOME Condition: Stable Deb Dumont MD Apr 01, 2016 10:22
[2016-04-01 10:31] LABS: ALKALINE PHOSPHATASE 123 U/L (45-117); ALT (GPT) 18 U/L (10-53); ANION GAP 8 MEQ/L (5-15); AST (GOT) 25 U/L (15-37); BICARBONATE 25.3 MEQ/L (21.0-32.0); BLOOD UREA NITROGEN 15 MG/DL (7-18); CHLORIDE 106 MEQ/L (98-107); GLOMERULAR FILTRATION RATE 71 ML/MIN (>89); POTASSIUM 4.4 MEQ/L (3.5-5.1); SODIUM (NA) 139 MEQ/L (136-145); TOTAL BILIRUBIN ADULT 0.4 MG/DL (0.2-1.0)
[2016-04-01 12:28] VITALS: BP 160/70; PULSE 56; RESP 20; O2SAT 100
== END 2016-04-01 18:19 | disposition home or self-care (01) ==
LOC: NEPC 09:32
DX: R10.9 Unspecified abdominal pain (principal); F03.90 Unspecified dementia, unspecified severity, without behavioral disturbance, psychotic disturbance, mood disturbance, and anxiety; I10 Essential (primary) hypertension; R41.82 Altered mental status, unspecified
CPT/HCPCS: 80053; 81001; 83690; 85025; 99285; P9612

== ENCOUNTER 2016-04-25 15:03 | Emergency (ER) | payer MEDICARE, OTHER ==
[~2016-04-25] VITALS: Ht 152.4 cm; Wt 57.0 kg
[~2016-04-25 15:03] MED LIST changes: +ACET300T2 PO; -HYDR-3516 PO; -MACR100C2 PO; -ROBA100S PO
[2016-04-25 15:10] VITALS: BP 143/78; PULSE 65; RESP 16; TEMP 98.1; O2SAT 97
--- NOTE | 2016-04-25 15:31 | PD ---
HPI Chief Complaint: Psychiatric Symptoms Time Seen by Provider: 15:31 Travel History International Travel<30 days: No Contact w/Intl Traveler<30days: No Traveled to known affect area: No History of Present Illness HPI 85-year-old female presents to the emergency department as Simental act. According to law enforcement report the patient became aggressive with staff at [facility] as they were trying to clean her up; it states that she was swinging and scratching staff and was still acting violent when law enforcement arrived. The staff felt she needed to be evaluated before she actually hurt someone at the facility. History of present illness is limited secondary to patient dementia. The patient is speaking Mohawk and Gambian, and is easily understood when she speaks Gambian. Patient is alert, but disoriented; is able to state her name and that she is a hospital; does not know date, year, or President. Patient states "no" when I ask her if she wants to hurt anybody or herself. The patient stated "no" when I asked her if she had any chest pain, shortness of breath, stomach pain. She also stated "no "when I asked her if she had any medical complaints. 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 No other modifying factors or associated signs and symptoms. PFSH Past Medical History Arthritis: No Anxiety: Yes Cancer: No Cardiovascular Problems: No Congestive Heart Failure: No Cerebrovascular Accident: No Dementia: Yes Diabetes: No Diminished Hearing: No Endocrine: No Gastrointestinal Disorders: No Genitourinary: No Headaches: No Hypertension: Yes Immune Disorder: No Implanted Vascular Access Dvce: No Musculoskeletal: Yes (LEFT WRIST FX) Neurologic: Yes (DEMENTIA) Psychiatric: No Respiratory: No Immunizations Current: Yes ([facility], APPROX 5 WEEKS AGO) Seizures: No Thyroid Disease: No ?: Not Menopausal: Yes Para: 2 Past Surgical History Joint Replacement: No Other Surgery: No Social History Alcohol Use: No Tobacco Use: No Substance Use: No Allergies-Medications (Allergen,Severity, Reaction): Coded Allergies: No Known Allergies (Unverified , 04/25/16) Reported Meds & Prescriptions Reported Meds & Active Scripts Active Tramadol (Tramadol HCl) 50 Mg Tab 50 Mg PO Q6H PRN Reported Haloperidol 0.5 Mg Tab 0.5 Mg PO BID Benztropine (Benztropine Mesylate) 1 Mg Tab 1 Mg PO BID Acetaminophen-Codeine 300-30 mg Tab 1 Tab PO Q4H PRN Docusate Sodium 100 Mg Cap 100 Mg PO BID Sertraline (Sertraline HCl) 100 Mg Tab 100 Mg PO DAILY Quetiapine (Quetiapine Fumarate) 300 Mg Tab 300 Mg PO HS Metoprolol Tartrate 25 Mg Tab 25 Mg PO BID Lisinopril 20 Mg Tab 20 Mg PO BID Hydralazine (Hydralazine HCl) 10 Mg Tab 10 Mg PO BID Take with a meal Donepezil 5 Mg Tab 5 Mg PO BID Review of Systems Except as stated in HPI: all other systems reviewed are Neg Physical Exam Narrative GENERAL: Well-nourished, well-developed elderly, female patient, in no acute distress SKIN: Warm and dry. HEAD: Atraumatic. Normocephalic. EYES: Pupils equal and round. ENT: Mucosa pink and moist. NECK: Supple. Trachea midline. CARDIOVASCULAR: Regular rate and rhythm. No murmur appreciated. RESPIRATORY: No accessory muscle use. Clear to auscultation. Breath sounds equal bilaterally. GASTROINTESTINAL: Abdomen soft, non-tender, nondistended. Hepatic and splenic margins not palpable. Bowel sounds are active 4 quadrants. MUSCULOSKELETAL: No obvious deformities. No clubbing. No cyanosis. No edema. NEUROLOGICAL: History of dementia. Awake and alert. Oriented 2; place and name. No obvious cranial nerve deficits. Motor grossly within normal limits. Normal speech. Moves all extremities. 5/5 strength to all extremities. PSYCHIATRIC: No delusional thought processes. No hallucinations. Data Data Last Documented VS Vital Signs Date Time Temp Pulse Resp B/P Pulse Ox O2 Delivery O2 Flow Rate FiO2 04/25/16 16:28 63 16 139/63 98 Room Air 04/25/16 15:10 98.1 Orders Complete Blood Count With Diff (04/25/16 15:32) Comprehensive Metabolic Panel (04/25/16 15:32) Urinalysis - C+S If Indicated (04/25/16 15:32) Drug Screen, Random Urine (04/25/16 15:32) Alcohol (Ethanol) (04/25/16 15:32) Salicylates (Aspirin) (04/25/16 15:32) Tylenol (Acetaminophen) (2/1/17 15:32) Psych Screen (04/25/16 15:32) Labs Laboratory Tests Test 04/25/16 16:04 White Blood Count 6.8 TH/MM3 Red Blood Count 3.69 MIL/MM3 Hemoglobin 10.7 GM/DL Hematocrit 32.9 % Mean Corpuscular Volume 89.4 FL Mean Corpuscular Hemoglobin 29.1 PG Mean Corpuscular Hemoglobin 32.5 % Concent Red Cell Distribution Width 13.9 % Platelet Count 210 TH/MM3 Mean Platelet Volume 9.7 FL Neutrophils (%) (Auto) 62.5 % Lymphocytes (%) (Auto) 25.2 % Monocytes (%) (Auto) 7.6 % Eosinophils (%) (Auto) 4.0 % Basophils (%) (Auto) 0.7 % Neutrophils # (Auto) 4.3 TH/MM3 Lymphocytes # (Auto) 1.7 TH/MM3 Monocytes # (Auto) 0.5 TH/MM3 Eosinophils # (Auto) 0.3 TH/MM3 Basophils # (Auto) 0.0 TH/MM3 CBC Comment DIFF FINAL Differential Comment Sodium Level 141 MEQ/L Potassium Level 4.2 MEQ/L Chloride Level 107 MEQ/L Carbon Dioxide Level 26.5 MEQ/L Anion Gap 8 MEQ/L Blood Urea Nitrogen 20 MG/DL Creatinine 1.08 MG/DL Estimat Glomerular Filtration 48 ML/MIN Rate Random Glucose 91 MG/DL Calcium Level 8.6 MG/DL Total Bilirubin 0.3 MG/DL Aspartate Amino Transf 22 U/L (AST/SGOT) Alanine Aminotransferase 22 U/L (ALT/SGPT) Alkaline Phosphatase 121 U/L Total Protein 7.8 GM/DL Albumin 3.7 GM/DL Salicylates Level LESS THAN 1.7 MG/DL Acetaminophen Level LESS THAN 2.0 MCG/ML Ethyl Alcohol Level LESS THAN 3 MG/DL MDM Medical Decision Making Medical Screen Exam Complete: Yes Emergency Medical Condition: Yes Medical Record Reviewed: Yes Differential Diagnosis Dementia, Alzheimer's disease, medical clearance for psych evaluation Narrative Course Patient presents under a Simental act. Physical examination and vital signs are essentially unremarkable. Patient has no medical complaints to report. Psych screen has been ordered. If the laboratory results are unremarkable, the patient will be medically cleared for psychiatric evaluation and disposition. Diagnosis Primary Impression: Medical clearance for psychiatric admission Condition: Stable Bree Oneal Apr 25, 2016 15:31
[2016-04-25] MEDS ORDERED: HALO0.5T PO (15:39)
[2016-04-25] MEDS ORDERED: BENZ1TAB PO (15:39)
[2016-04-25 16:28] VITALS: BP 139/63; PULSE 63; RESP 16; O2SAT 98
[2016-04-25 16:48] LABS: AUTOMATED NEUTROPHIL # 4.3 TH/MM3 (1.8-7.7); BASOPHIL % 0.7 % (0.0-2.0); EOSINOPHIL # 0.3 TH/MM3 (0-0.4); HEMATOCRIT 32.9 % (35.0-46.0); HEMO FLAGS DIFF FINAL; LYMPH % 25.2 % (9.0-44.0); LYMPHOCYTE # 1.7 TH/MM3 (1.0-4.8); MEAN CELL VOLUME 89.4 FL (80.0-100.0); MEAN CORPUSCULAR HEMOGLOBIN 29.1 PG (27.0-34.0); MEAN CORPUSCULAR HGB CONC 32.5 % (32.0-36.0); MONO % 7.6 % (0.0-8.0); NEUT % 62.5 % (16.0-70.0); PLATELET COUNT 210 TH/MM3 (150-450); RED BLOOD COUNT 3.69 MIL/MM3 (4.00-5.30); RED CELL DISTRIBUTION WIDTH 13.9 % (11.6-17.2); WHITE BLOOD COUNT 6.8 TH/MM3 (4.0-11.0)
[2016-04-25 17:09] LABS: ALKALINE PHOSPHATASE 121 U/L (45-117); TOTAL BILIRUBIN ADULT 0.3 MG/DL (0.2-1.0)
[2016-04-25 17:19] LABS: ALT (GPT) 22 U/L (10-53); ANION GAP 8 MEQ/L (5-15); AST (GOT) 22 U/L (15-37); BICARBONATE 26.5 MEQ/L (21.0-32.0); BLOOD UREA NITROGEN 20 MG/DL (7-18); CHLORIDE 107 MEQ/L (98-107); GLOMERULAR FILTRATION RATE 48 ML/MIN (>89); POTASSIUM 4.2 MEQ/L (3.5-5.1); SODIUM (NA) 141 MEQ/L (136-145)
[2016-04-25 17:23] LABS: ACETAMINOPHEN LESS THAN 2.0 MCG/ML (10.0-30.0)
[2016-04-25 17:39] LABS: AMPHETAMINE, URINE NEG (NEG); BARBITURATES, URINE NEG (NEG); COCAINE, URINE NEG (NEG)
[2016-04-25 17:41] LABS: BACTERIA, URINE MANY /hpf; BLOOD, URINE SMALL (NEG); COMMENT (UR) CULTURE INDICATED; CULTURE IF INDICATED CULTURE INDICATED; GLUCOSE,URINE NEG (NEG); KETONE, URINE NEG (NEG); NITRITE,URINE NEG (NEG); PH, URINE 6.5 (5.0-8.5); SQUAMOUS EPITHELIAL CELL URINE 2 /hpf (0-5); URINE COLOR YELLOW (YELLW/STRAW)
[2016-04-25 19:08] VITALS: BP 139/63; PULSE 89; RESP 18; O2SAT 99
[2016-04-26 02:14] VITALS: BP 138/78; PULSE 90; RESP 18; O2SAT 99
--- NOTE | 2016-04-26 10:23 | PD ---
History of Present Illness Chief Complaint: Psychiatric Symptoms Time Seen by Provider: 10:00 Travel History International Travel<30 Days: No Contact w/Intl Traveler<30days: No Known affected area: No Legal Status Legal Status: Simental Act Simental Act Signed By: Dinora Ghotra History of Present Illness: History of Present Illness HPI 85-year-old female with hx of dementia who presents to the emergency department as Simental act initiated by MARLEN. According to the report the patient became aggressive with staff at [facility] as they were trying to clean her up; it states that she was swinging and scratching staff and was still acting violent when law enforcement arrived. The staff felt she needed to be evaluated before she actually hurt someone at the facility. Patient was monitored in main ED and as per Carissa ROSADO report she has been pleasant and has not been aggressive. Patient with significant UTI. As per EMR she was hosp at [facility] in 2014 when she was found to be living in inadequate living conditions and her utilities were shut off due to non payment. It was determined at that time that she had dementia and was sent to [facility]. Patient is awake, alert , responds to her name. She is very pleasant and conversant. Not oriented to time, place or situation. She has difficulty with word finding. She communicates in Swazi with this marketing underwriter. She denies any hallucinations or delusions and states " I would run if I were to see something ". No suicidal or homicidal ideation. She does endorse feeling sad " since both my father and mother have dies". Patient is currently on several psychiatric medications including Haldol, Seroquel and Zoloft. She is unable to provide clinical information. [facility] Past Medical History Arthritis: No Anxiety: Yes Cancer: No Cardiovascular Problems: No Congestive Heart Failure: No Cerebrovascular Accident: No Dementia: Yes Diabetes: No Diminished Hearing: No Endocrine: No Gastrointestinal Disorders: No Genitourinary: No Headaches: No Hypertension: Yes Immune Disorder: No Implanted Vascular Access Dvce: No Musculoskeletal: Yes (LEFT WRIST FX) Neurologic: Yes (DEMENTIA) Psychiatric: No Respiratory: No Immunizations Current: Yes ([place] [facility], APPROX 5 WEEKS AGO) Seizures: No Thyroid Disease: No ?: Not Menopausal: Yes Para: 2 Past Surgical History Surgical History: No Previous Surgery Joint Replacement: No Other Surgery: No Psychiatric History Psychiatric History Hx Psychiatric Treatment: [facility] unable to provide History of Inpatient Treatment: No Guns or firearms in home: No Social History Lives in nursing facility. Hx Alcohol Use: No Hx Tobacco Use: No Hx Substance Use: No Hx of Substance Use Treatment: No Family Psychiatric History Unknown Allergies-Medications (Allergen,Severity, Reaction): Coded Allergies: No Known Allergies (Unverified , 04/25/16) Reported Meds & Prescriptions Reported Meds & Active Scripts Active Tramadol (Tramadol HCl) 50 Mg Tab 50 Mg PO Q6H PRN Reported Haloperidol 0.5 Mg Tab 0.5 Mg PO BID Benztropine (Benztropine Mesylate) 1 Mg Tab 1 Mg PO BID Acetaminophen-Codeine 300-30 mg Tab 1 Tab PO Q4H PRN Docusate Sodium 100 Mg Cap 100 Mg PO BID Sertraline (Sertraline HCl) 100 Mg Tab 100 Mg PO DAILY Quetiapine (Quetiapine Fumarate) 300 Mg Tab 300 Mg PO HS Metoprolol Tartrate 25 Mg Tab 25 Mg PO BID Lisinopril 20 Mg Tab 20 Mg PO BID Hydralazine (Hydralazine HCl) 10 Mg Tab 10 Mg PO BID Take with a meal Donepezil 5 Mg Tab 5 Mg PO BID Review of Systems ROS Limitations: Poor Historian Exam Alert: Yes [place]: Person (only) Mood: Calm Affect: Euthymic Speech: Clear (dificulty with word searching.) Eye Contact: Normal Memory Intact: Comment (impaired buit not formally testing) Hallucinations: Other (deneis) Suicidal: Ideation (denies any) Homicidal: Ideation (denies any) Insight/Judgement poor. Impaired MDM Medical Decision Making Medical Record Reviewed: Yes Assessment/Plan 85 year old female with cognitive impairment. She is a resident of a nursing facility and it is reported she became aggressive. Patient w significant UTI at this time. She does not meet BA criteria and has not presented any aggressive or agitated behavior while in ED. At this time she is cleared from psychiatry for discharge to her nursing facility. Orders Complete Blood Count With Diff (04/25/16 15:32) Comprehensive Metabolic Panel (04/25/16 15:32) Urinalysis - C+S If Indicated (04/25/16 15:32) Drug Screen, Random Urine (04/25/16 15:32) Alcohol (Ethanol) (04/25/16 15:32) Salicylates (Aspirin) (04/25/16 15:32) Tylenol (Acetaminophen) (04/25/16 15:32) Psych Screen (04/25/16 15:32) Urine Culture (04/25/16 16:45) Results Vital Signs Date Time Temp Pulse Resp B/P Pulse Ox O2 Delivery O2 Flow Rate FiO2 04/26/16 02:14 90 18 138/78 99 Room Air 04/25/16 19:08 89 18 139/63 99 Room Air 04/25/16 16:28 63 16 139/63 98 Room Air 04/25/16 15:40 65 17 04/25/16 15:10 98.1 65 16 143/78 97 Laboratory Tests Test 04/25/16 04/25/16 16:04 16:45 White Blood Count 6.8 Red Blood Count 3.69 Hemoglobin 10.7 Hematocrit 32.9 Mean Corpuscular Volume 89.4 Mean Corpuscular Hemoglobin 29.1 Mean Corpuscular Hemoglobin 32.5 Concent Red Cell Distribution Width 13.9 Platelet Count 210 Mean Platelet Volume 9.7 Neutrophils (%) (Auto) 62.5 Lymphocytes (%) (Auto) 25.2 Monocytes (%) (Auto) 7.6 Eosinophils (%) (Auto) 4.0 Basophils (%) (Auto) 0.7 Neutrophils # (Auto) 4.3 Lymphocytes # (Auto) 1.7 Monocytes # (Auto) 0.5 Eosinophils # (Auto) 0.3 Basophils # (Auto) 0.0 CBC Comment DIFF FINAL Differential Comment Sodium Level 141 Potassium Level 4.2 Chloride Level 107 Carbon Dioxide Level 26.5 Anion Gap 8 Blood Urea Nitrogen 20 Creatinine 1.08 Estimat Glomerular Filtration 48 Rate Random Glucose 91 Calcium Level 8.6 Total Bilirubin 0.3 Aspartate Amino Transf 22 (AST/SGOT) Alanine Aminotransferase 22 (ALT/SGPT) Alkaline Phosphatase 121 Total Protein 7.8 Albumin 3.7 Salicylates Level LESS THAN 1.7 Acetaminophen Level LESS THAN 2.0 Ethyl Alcohol Level LESS THAN 3 Urine Color YELLOW Urine Turbidity CLOUDY Urine pH 6.5 Urine Specific [place] 1.019 Urine Protein TRACE Urine Glucose (UA) NEG Urine Ketones NEG Urine Occult Blood SMALL Urine Nitrite NEG Urine Bilirubin NEG Urine Urobilinogen LESS THAN 2.0 Urine Leukocyte Esterase LARGE Urine RBC 25 Urine WBC 43 Urine Squamous Epithelial 2 Cells Urine Bacteria MANY Microscopic Urinalysis Comment CULTURE INDICATED Urine Opiates Screen NEG Urine Barbiturates Screen NEG Urine Amphetamines Screen NEG Urine Benzodiazepines Screen NEG Urine Cocaine Screen NEG Urine Cannabinoids Screen NEG Date/Time Procedure Status Source Growth 04/25/16 16:45 Urine Culture Received Urine Clean Catch Pending Diagnosis Primary Impression: dementia with behavioral disturbance Additional Impression: Medical clearance for psychiatric admission Psychiatrically Cleared: Yes Condition: Stable Problem Qualifiers Amy Soto Apr 26, 2016 10:22
[2016-04-26] MEDS ORDERED: CEPH-460 PO (10:47)
== END 2016-04-26 14:02 ==
LOC: NEPA 15:03
DX: F03.91 Unspecified dementia, unspecified severity, with behavioral disturbance (principal); I10 Essential (primary) hypertension; N39.0 Urinary tract infection, site not specified; B96.20 Unspecified Escherichia coli [E. coli] as the cause of diseases classified elsewhere; B96.89 Other specified bacterial agents as the cause of diseases classified elsewhere
CPT/HCPCS: 80053; 80307; 80320; 81001; 85025; 87077; 87086; 87186; 96372; 99284; J0696; 80329; G0480